=== PATIENT | male | born 1990 | race Caucasian/White ===

== ENCOUNTER 2016-10-17 08:06 | Day surgery (SDC) | payer OTHER ==
--- NOTE | ~2016-10-17 | OP ---
Record Of Operation [facility] [address] [place]. [address] NAME: KARLO DAVIDSON : 89 STATUS : [facility]#: [id number] AGE: 25 ADM/REG DATE : 10/17/16 MR#: [id number] REPORT SERV DATE: 10/17/16 DICTATED BY: ALLA FERNANDEZ DATE: 10/17/16 REPORT STATUS : Draft TRANSCRIBED BY: MODL DATE: 10/17/16 DATE OF PROCEDURE: 10/17/2016 PREOPERATIVE DIAGNOSIS: Left cheek cyst. POSTOPERATIVE DIAGNOSIS: Left cheek sebaceous cyst, 3 cm. PROCEDURE PERFORMED: 1. Excision of left cheek sebaceous cyst. 2. Complex closure of a 4 x 2 cm defect. SURGEON: Alla Fernandez M.D. PIN BALL MACHINE MECHANIC: Jl [place]. ANESTHESIA: General. COMPLICATIONS: None. CONDITION: Stable to recovery. INDICATIONS: 25-year-old male with a left cheek cyst slowly growing with 2 to 3 cm in size, subcutaneous in the mid cheek. Risks, benefits, and alternatives to excision were explained. PROCEDURE IN DETAIL: The patient was identified in preoperative holding taken back to the operating room, and placed supine on the operating room table. General anesthesia was established. Facial nerve monitor was connected to the orbicularis auris, orbicularis oculi on the left side. The time-out was called, the patient and procedure were confirmed. The tap test was positive. An ellipse was marked with a surgical ink pen in the relaxed skin tension line to the left cheek to include the thin attenuated cheek skin associated with the cyst and to capture the puncta of the sebaceous cyst within the excision. He was prepped and draped in a standard fashion for the operation. A 15 blade was used to make the skin incision and a subcutaneous dissection was performed with a combination of Bovie cautery, bipolar cautery, and Metzenbaum scissors. This large mobile cystic structure was superficial to the parotid fascia and anterior to it. The blunt dissection, bipolar cautery, and Bovie cautery were used for hemostasis. There was no triggering of the facial nerve. No visualization of the facial nerve during the dissection as it was superficial to these structures. The defect was 4 x 2 cm and was closed in layers using 4-0 Vicryl, and a 5-0 running Prolene, followed by Steri-Strips. The patient was awakened and taken to recovery in stable condition. PH/MODL Record Of [place] [id number] [place]. [address] NAME: KARLO DAVIDSON : 89 STATUS : [facility]#: [id number] AGE: 25 ADM/REG DATE : 10/17/16 MR#: [id number] REPORT SERV DATE: 10/17/16 DICTATED BY: ALLA FERNANDEZ DATE: 10/17/16 REPORT STATUS : Draft TRANSCRIBED BY: MODL DATE: 10/17/16 Alla Fernandez M.D. / [id number] CC: Alla Fernandez M.D.
[~2016-10-17 08:06] MED LIST: *DENIES
[2016-10-17 08:45] LABS: HEMATOCRIT 45.7 % (40.0-51.0); HEMOGLOBIN 16.2 g/dL (13.6-17.8)
== END 2016-10-17 11:41 | disposition home or self-care (01) ==
LOC: SDC 08:06
PROVIDERS: Specialist
PROC: 0WQ20ZZ Repair Face, Open Approach (ICD-10-PCS; 2016-10-17)
PROC: 0WB Anatomical Regions, General, Excision (ICD-10-PCS; principal; 2016-10-17 09:00)
DX: L72.0 Epidermal cyst (principal); F17.210 Nicotine dependence, cigarettes, uncomplicated
CPT/HCPCS: 85014; 85018; 88304; J0690; J2250; J2370; J2405; J2710; J3010

== ENCOUNTER 2016-10-23 17:00 | Emergency (ER) | payer OTHER | END 2016-10-23 18:17 | disposition home or self-care (01) | LOC: ER 17:00 | DX: S39.92XA Unspecified injury of lower back, initial encounter (principal); V89.9XXA Person injured in unspecified vehicle accident, initial encounter | CPT/HCPCS: 72100; 99284 ==